=== PATIENT | male | born 1995 | race Caucasian/White ===

== ENCOUNTER 2016-09-16 23:21 | Emergency (ER) | payer OTHER ==
[2016-09-16 23:34] VITALS: O2SAT 97
[2016-09-17] MEDS ORDERED: OXYCODONE/APAP 5/325 TAB PO ONE (00:35)
--- NOTE | 2016-09-17 00:35 | EDPHY ---
H & P Time Seen by Provider: 09/17/16 00:31 HPI/ROS: CHIEF COMPLAINT: Hand laceration HISTORY OF PRESENT ILLNESS: This is a 20-year-old male presenting to the emergency department complaining multiple lacerations to left hand. Patient states him in his friends were watching or years basketball game doing a little drinking he tripped trying to catch himself his left hand went into a glass window. Denies any LOC, no head injury, tetanus up-to-date. Denies any other injuries REVIEW OF SYSTEMS: Constitutional: No fever, no chills. Eyes: No discharge. No blurred vision ENT: No sore throat. Cardiovascular: No chest pain, no palpitations. Respiratory: No cough, no shortness of breath. Gastrointestinal: No abdominal pain, no vomiting. Musculoskeletal: No back pain. Multiple lacerations to left hand Skin: No rashes. Neurological: No headache. Smoking Status: Heavy smoker Physical Exam: General Appearance: Alert and no distress. HEENT: Normocephalic atraumatic Pupils equal and round no injection. Respiratory: Chest is nontender, lungs are clear to auscultation. Cardiac: regular rate and rhythm Gastrointestinal: Abdomen is soft and nontender, no masses, bowel sounds normal. Musculoskeletal: Neck is supple and nontender. Extremities: Multiple Laceration noted to left lateral palm 1cm. left anterior pinky 2cm vertical 1.5 cm horizontal. 2 cm laceration dorsal aspect base of middle finger no tendon involvement. 1.5cm lateral aspect middle finger no tendon involvement Skin: No rashes or lesions. Constitutional: Initial Vital Signs Temperature (C) 36.3 C 09/16/16 23:32 Heart Rate 65 09/16/16 23:32 Respiratory Rate 20 09/16/16 23:32 Blood Pressure 106/43 L 09/16/16 23:32 O2 Sat (%) 97 09/16/16 23:32 Allergies/Adverse Reactions: No Known Allergies Allergy (Unverified 01/21/10 20:20) Home Medications: Medication Instructions Recorded None 01/21/10 Mucinex 09/16/16 VYVANSE 09/16/16 Amoxicillin/Clavulanate Pot 875 mg PO BID #14 tab 09/17/16 [Augmentin 875 MG TAB (*)] oxyCODONE/APAP 5/325 [Percocet 1 - 2 tab PO Q6H PRN #20 tab 09/17/16 5/325 (*)] Medical Decision Making Procedures: Procedure: Laceration repair. Verbal consent was obtained from the patient. Multiple laceration on the left pinky, left palm, left dorsal aspect and left ring finger. 0.5% bupivacaine without epinephrine 10 mL local infiltrate and digital block The wound was irrigated. There were no deep structures involved. The wound was repaired 5-0 Ethilon #37 sutures placed. The procedure was performed by myself. A dressing was applied by our EMT. ED Course/Re-evaluation: Discussed the plan of care: Wound irrigation, suture repair 0200: Suture repair, patient tolerated procedure well. Discharge home---> stable, discussed all discharge instructions with patient Differential Diagnosis: Other differential diagnosis considered but not limited to avulsion fracture, no foreign body, and laceration with tendon involvement - Data Points Medications Given: Discontinued Medications Oxycodone/Acetaminophen (Percocet 5/325) 1 tab PO EDNOW ONE Stop: 09/17/16 00:36 Last Admin: 09/17/16 00:45 Dose: 1 tab Departure - Departure Disposition: Home, Routine, Self-Care Clinical Impression: Laceration Condition: Good Instructions: Care For Your Stitches (ED), Laceration (ED) Additional Instructions: 1. Have stitches removed in 10 days 2. Monitor for any signs of infection, such as redness red streaks swelling pus if this should occur return to the ER 3. Follow up with your primary care provider as needed. 4. Ibuprofen 600 mg every 6-8 hours as needed Referrals: Caleb Guthrie MD [Primary Care Provider] - As per Instructions Prescriptions: Amoxicillin/Clavulanate Pot [Augmentin 875 MG TAB (*)] 875 mg PO BID #14 tab oxyCODONE/APAP 5/325 [Percocet 5/325 (*)] 1 - 2 tab PO Q6H PRN #20 tab PRN Reason: Pain, Severe
[2016-09-17 02:18] VITALS: BP 109/57; PULSE 62; RESP 16; TEMP 98.1
== END 2016-09-17 02:29 | disposition home or self-care (01) ==
PROC: 0HQGXZZ Repair Left Hand Skin, External Approach (ICD-10-PCS; principal; 2016-09-16)
DX: S61.412A Laceration without foreign body of left hand, initial encounter (principal); S61.215A Laceration without foreign body of left ring finger without damage to nail, initial encounter; S61.217A Laceration without foreign body of left little finger without damage to nail, initial encounter; F17.200 Nicotine dependence, unspecified, uncomplicated; W25.XXXA Contact with sharp glass, initial encounter
CPT/HCPCS: L3925